=== PATIENT | male | born 1955 | race Asian ===

== ENCOUNTER 2017-12-16 08:33 | Emergency (ER) | payer MEDICAID ==
[~2017-12-16] VITALS: Ht 170.2 cm; Wt 104.3 kg
[2017-12-16 08:41] VITALS: BP_SYST 147
--- NOTE | 2017-12-16 08:45 | NUR ---
David colvin in ED - 12/16/17 at [address] Goddard at bedside to assess pt.
--- NOTE | 2017-12-16 08:48 | NUR ---
Assumed care of pt. Pt c/o productive cough, yellow sputum with congestion x 1 week. Coarse BBS to bases. Airway patent, no SOB or C/P.
--- NOTE | 2017-12-16 08:48 | NUR ---
Patient to ER bed 8 to gown for evaluation. Side rails up. Report given to Tim ALMANZA.
--- NOTE | 2017-12-16 08:50 | NUR ---
Dr. Goddard at bedside to assess pt.
[2017-12-16] MEDS ORDERED: ALBUTEROL SULFATE 0.083% 2.5 MG/3 ML VIAL.NEB IH ONE (09:00)
[2017-12-16] MEDS ORDERED: IPRATROPIUM BROM 0.5 MG/2.5 ML VIAL.NEB (ATROVENT) IH ONE (09:00)
[2017-12-16 09:28] LABS: BASOPHILS # (AUTO) 0.3 K/uL (0.0-0.2); BASOPHILS % (AUTO) 3.1 % (0.0-2.0); EOSINOPHILS # (AUTO) 0.1 K/uL (0.0-0.4); EOSINOPHILS % (AUTO) 0.9 % (0.0-4.0); HEMOGLOBIN 14.4 g/dL (14.0-18.0); LYMPHOCYTES # (AUTO) 1.1 K/uL (1.0-5.5); LYMPHOCYTES % (AUTO) 11.7 % (20.5-51.5); MEAN CORPUSCULAR HEMOGLOBIN 28 pg (27-31); MEAN CORPUSCULAR HGB CONC 33 % (32-36); MEAN CORPUSCULAR VOLUME 87 fL (79.0-98.0); MONOCYTES % (AUTO) 10.3 % (1.7-9.3); NEUTROPHILS # (AUTO) 7.3 K/uL (1.8-7.7); PLATELET COUNT (AUTO) 212 K/uL (130-430); RED BLOOD CELL COUNT(AUTO) 5.07 MIL/uL (4.2-6.2); RED CELL DISTRIBUTION WIDTH 12.3 % (9.0-15.0); WHITE BLOOD COUNT (AUTO) 9.8 K/uL (4.8-10.8)
[2017-12-16 09:42] LABS: CALCIUM 9.6 mg/dL (8.4-11.0); CREATININE 0.9 mg/dL (0.55-1.30); POTASSIUM 3.6 mmol/L (3.5-5.1)
[2017-12-16 09:46] LABS: PROTHROMBIN TIME 9.7 SECS (9.5-12.5)
[2017-12-16 09:47] LABS: ALBUMIN 3.9 g/dL (3.4-4.8); TOTAL BILIRUBIN 0.6 mg/dL (0.0-1.0)
[2017-12-16 10:40] VITALS: BP_SYST 136
--- NOTE | 2017-12-16 10:40 | NUR ---
Patient given written and verbal discharge instructions and verbalizes understanding. ER MD discussed with patient the results and treatment provided. Patient in stable condition. ID arm band removed. Rx of Zithromax, Prednisone, Tylenol with Codeine given. Patient educated on pain management and to follow up with PMD. Pain Scale 0/10. Opportunity for questions provided and answered. Medication side effect fact sheet provided.
== END 2017-12-16 10:40 | disposition home or self-care (01) ==
LOC: SED 08:33
DX: J20.9 Acute bronchitis, unspecified (principal); I10 Essential (primary) hypertension
CPT/HCPCS: 36415; 71045; 80053; 85025; 85610-TC; 85730-TC; 86710; 94640; 99285